=== PATIENT | female | born 1960 | race Two or more races ===

== ENCOUNTER 2017-10-21 09:46 | Outpatient (CLI) | payer OTHER | END 2017-10-21 17:00 | disposition home or self-care (01) | LOC: MAMO-SONO 09:46 | DX: Z12.31 Encounter for screening mammogram for malignant neoplasm of breast (principal); N60.19 Diffuse cystic mastopathy of unspecified breast ==

== ENCOUNTER 2018-01-20 10:57 | Outpatient (CLI) | payer OTHER | END 2018-01-20 16:03 | disposition home or self-care (01) | LOC: SONOGRAMA 10:57 | DX: R92.2 Inconclusive mammogram (principal) ==

== ENCOUNTER 2018-07-25 14:04 | Outpatient (CLI) | payer OTHER | END 2018-07-25 14:12 | disposition home or self-care (01) | LOC: SONOGRAMA 14:04 | DX: N63.21 Unspecified lump in the left breast, upper outer quadrant (principal); R92.2 Inconclusive mammogram ==

== ENCOUNTER 2018-09-01 19:16 | Emergency (ER) | payer OTHER ==
[~2018-09-01] VITALS: Ht 157.5 cm; Wt 63.5 kg
[2018-09-01] MEDS ORDERED: COZAAR50 MG (19:44)
[2018-09-01] MEDS ORDERED: LOSARTAN-HCTZ1 EACH (19:45)
== END 2018-09-01 23:53 | disposition home or self-care (01) ==
LOC: ER 19:16
DX: B34.9 Viral infection, unspecified (principal)

== ENCOUNTER 2019-11-10 11:34 | Outpatient (CLI) | payer OTHER ==
[~2019-11-10 11:34] MED LIST: COZAAR50 MG; LOSARTAN-HCTZ1 EACH
== END 2019-11-10 11:37 | disposition home or self-care (01) ==
LOC: MAMO-SONO 11:34
DX: Z12.31 Encounter for screening mammogram for malignant neoplasm of breast (principal); N60.11 Diffuse cystic mastopathy of right breast; N60.12 Diffuse cystic mastopathy of left breast